=== PATIENT | male | born 1975 | race Caucasian/White ===

== ENCOUNTER 2018-07-14 02:32 | Emergency (ER) | payer OTHER ==
[~2018-07-14] VITALS: Ht 180.3 cm; Wt 63.5 kg
[2018-07-14] MEDS ORDERED: DUI500 PO (04:29)
[2018-07-14] MEDS ORDERED: KETO10TA2 PO ×2 (04:29)
== END 2018-07-14 04:37 | disposition home or self-care (01) ==
LOC: ER 02:32
DX: S61.421A Laceration with foreign body of right hand, initial encounter (principal); W25.XXXA Contact with sharp glass, initial encounter; Y93.89 Activity, other specified; Y92.69 Other specified industrial and construction area as the place of occurrence of the external cause; Y99.8 Other external cause status